=== PATIENT | female | born 1960 | race Caucasian/White ===

== ENCOUNTER → 2017-07-19 | Outpatient (CLI) | payer OTHER | END | disposition home or self-care (01) | LOC: CFH 08:47 | PROVIDERS: ATTEND Specialist | DX: Z12.31 Encounter for screening mammogram for malignant neoplasm of breast (principal) | CPT/HCPCS: 77063; G0202 ==

== ENCOUNTER → 2019-01-16 | Outpatient (CLI) | payer OTHER | END | disposition home or self-care (01) | LOC: CFH 09:28 | PROVIDERS: ATTEND Specialist | DX: Z12.31 Encounter for screening mammogram for malignant neoplasm of breast (principal) | CPT/HCPCS: 77063; 77067 ==

== ENCOUNTER 2019-10-05 14:09 | Inpatient (IN) | payer OTHER ==
[~2019-10-05] VITALS: Ht 165.1 cm; Wt 66.1 kg
[2019-10-05] MEDS ORDERED: KETOROLAC 30 MG/1 ML ONE (14:47)
--- NOTE | 2019-10-05 14:53 | NUR ---
UA SENT PIV PLACED FROM WHICH LABS WERE DRAWN PATIENT THEN MEDICATED PWER EMAR FOR 09/03 RIGHT FLANK FLANK
[2019-10-05] MEDS ORDERED: KETOROLAC 30 MG/1 ML IVPush ONE (15:00)
[2019-10-05] MEDS ORDERED: SODIUM CHLORIDE FLUSH 10ML SYR IVF ONE (15:00)
--- NOTE | 2019-10-05 15:02 | NUR ---
B/P OF 88/45, HR 75. PATIENT QUITE CHILLED pROVIDER MADE AWARE. TO ADMIN 1L NS
[2019-10-05 15:06] LABS: MEAN CORPUSCULAR HEMOGLOBIN 25.9 pg (27.0-34.8); MEAN PLATELET VOLUME 9.4 fL (7.4-10.4); PLATELET COUNT 218 x10^3/uL (130-400); RED BLOOD COUNT 4.56 x10^6/uL (3.82-5.3); RED CELL DISTRIBUTION WIDTH 16.7 % (9.6-15.2)
[2019-10-05 15:08] LABS: ALANINE AMINOTRANSFERASE 33 U/L (12-78); ALBUMIN 4.3 g/dL (3.4-5.0); ANION GAP 7 mmol/L (5-15); CALCIUM 9.5 mg/dL (8.5-10.1); CHLORIDE 107 mmol/L (98-107); CREATININE 0.91 mg/dL (0.55-1.02)
[2019-10-05 15:10] LABS: ALKALINE PHOSPHATASE 74 U/L (45-117); BILIRUBIN,TOTAL 0.7 mg/dL (0.2-1.0); TOTAL PROTEIN 7.8 g/dL (6.4-8.2)
[2019-10-05 15:11] LABS: CULTURE INDICATED? YES; MICROSCOPIC INDICATED
--- NOTE | 2019-10-05 15:27 | NUR ---
abd us at bedside complete b/p remains hypotensive 89/39. however hr 70 1l ns 60% completre Provider made aware-asked for 2nd liter of ns, blood cultures and abx orders Provider considering poc-to bedside to explain
[2019-10-05 15:28] LABS: MD YES
[2019-10-05 15:29] LABS: <PLATELET ESTIMATE> ADEQUATE; BAND#(MANUAL) 1.28 x10^3/uL; BANDS%(MANUAL) 11 % (0-7); HYPOCHROMIA 1+; LYMPH#(MANUAL) 0.23 x10^3/uL (1-3.4); LYMPHS% (MANUAL) 2 % (22-44); MICROCYTOSIS 1+; SEG#(MANUAL) 10.09 x10^3/uL (1.8-6.8); SEGS% (MANUAL) 87 % (42-75)
[2019-10-05 15:30] LABS: <PLT MORPHOLOGY> NORMAL PLT MORPH
[2019-10-05] MEDS ORDERED: SODIUM CHLORIDE 0.9% 1,000ML IVBOLUS ONE ×2 (15:30→16:00)
--- NOTE | 2019-10-05 15:48 | NUR ---
1l ns complete to radiology
[2019-10-05] MEDS ORDERED: CEFTRIAXONE PMX 1GM/50ML 50 ML IV ONE (16:00)
--- NOTE | 2019-10-05 16:00 | NUR ---
WILL HANG ABX ONCE CULTURES OBTAINED-LAB MADE AWARE. 2ND LITER NS ADMINISTERED
--- NOTE | 2019-10-05 16:06 | NUR ---
lab at bedside. blood cultures obtained x 2 abx administerd per emar (after cultures completed)
[2019-10-05] MEDS ORDERED: MORPHINE SULFATE 4 MG/ML, 1ML ONE (16:08)
[2019-10-05] MEDS ORDERED: ONDANSETRON 2MG/ML, 2ML ONE (16:08)
[2019-10-05] MEDS ORDERED: CEFTRIAXONE PMX 1GM/50ML 50 ML ONE (16:08)
[2019-10-05] MEDS ORDERED: FENTANYL PF 100 MCG/2ML ONE (16:10)
--- NOTE | 2019-10-05 16:28 | NUR ---
DR. BARROS AT BEDSIDE TO ADMIT
[2019-10-05] MEDS ORDERED: ONDANSETRON ODT 4 MG PO ONE (16:30)
[2019-10-05] MEDS: ONDANSETRON 2MG/ML, 2ML IVPush PRN (16:30)
[2019-10-05] MEDS ORDERED: FENTANYL PF 100 MCG/2ML IVPush ONE (16:30)
--- NOTE | 2019-10-05 16:50 | NUR ---
TO CT SCAN WITH REASSESSMENT PATIENT REPORTS PAIN/NAUSEA COMPLETELY IMPROVED TO 0/10 HOWEVFER B/P REMAIN 99/68 (2ND LITER OF NS 30% COMPLETE)
[2019-10-05] MEDS ORDERED: OXYcodone IR 5MG TABLET PO PRN (17:00)
[2019-10-05] MEDS ORDERED: hydrALAzine 20 MG/ML, 1ML IVPush PRN (17:00)
--- NOTE | 2019-10-05 17:08 | NUR ---
ATTEMPETED TO CALL REPORT. INPATIENT RN UNAVAILABLE. WILL TRY AGAIN SHORTLY
--- NOTE | 2019-10-05 17:23 | NUR ---
ATTEMPTED TO CALL REPORT AGIN. ROCHE STILL UNAVAILABLE
--- NOTE | 2019-10-05 17:38 | NUR ---
2ND OF NS STILL ONLY 20% COMPLETE. (PATIENT MOVING ARM ALOT SHE FEEL BETTER-OCCLUDING PIV)
[2019-10-05] MEDS ORDERED: OMNIPAQUE 350 MG/ML, 100ML BOTTLE ONE (17:40)
--- NOTE | 2019-10-05 17:46 | NUR ---
PINK SHEET COMPLETED- INPATIENT RN REMINDED TO ASSURE REPEAT VS POST FLUID RESUSCITATION
[2019-10-05] MEDS ORDERED: PROMETHAZINE 25 MG/ML, 1ML IM PRN (18:00)
[2019-10-05] MEDS ORDERED: morphine SULFATE 10 MG/ML, 1ML IVPush PRN (18:00)
--- NOTE | 2019-10-05 18:01 | NUR ---
IVF RATE TROUBLE SHOOTED- SOMEONE CLAMPED ROLLER CLAMP. FIXED. PATIENT PROVIDED WITH FULL DIET TRAY (PATIENT EATING VORACIOUSLY) REPORTS PAIN NOW 05/04- TO MEDICATE
[2019-10-05 18:18] VITALS: BP 94/61
[2019-10-05 18:56] VITALS: BP 99/62
[2019-10-05 20:32] VITALS: BP 92/53
[2019-10-05] MEDS: TAMSULOSIN 0.4 MG CAP.ER.24H PO SCH (20:42)
[2019-10-05] MEDS: D5%-0.45NACL+KCL 20MEQ 1,000 ML IV SCH (20:43)
[2019-10-05] MEDS ORDERED: KETOROLAC 30 MG/1 ML IV PRN (21:00)
[2019-10-05 21:07] VITALS: BP 95/59
[2019-10-06] MEDS: ACETAMINOPHEN 325 MG TABLET PO PRN ×2 (00:31→07:46)
[2019-10-06 00:54] VITALS: BP 95/57
[2019-10-06 01:34] LABS: CULTURE INDICATED? YES; MICROSCOPIC AUTO
[2019-10-06 03:20] VITALS: BP 97/60
[2019-10-06 05:15] LABS: BASOPHILS # (AUTO) 0.01 x10^3/uL (0-0.1); BASOPHILS % (AUTO) 0 % (0-1); EOSINOPHILS # (AUTO) 0.02 x10^3/uL (0-0.4); EOSINOPHILS % (AUTO) 0 % (1-7); LYMPHOCYTES # (AUTO) 0.83 x10^3/uL (1-3.4); LYMPHOCYTES % (AUTO) 10 % (22-44); MD NO; MEAN CORPUSCULAR HEMOGLOBIN 26.6 pg (27.0-34.8); MEAN CORPUSCULAR VOLUME 83.1 fL (80-100); MEAN PLATELET VOLUME 9.4 fL (7.4-10.4); MONOCYTES # (AUTO) 0.53 x10^3/uL (0.2-0.8); MONOCYTES % (AUTO) 6 % (2-9); NEUTROPHILS # (AUTO) 6.83 x10^3/uL (1.8-6.8); NEUTROPHILS % (AUTO) 83 % (42-75); PLATELET COUNT 156 x10^3/uL (130-400); RED BLOOD COUNT 3.69 x10^6/uL (3.82-5.3); RED CELL DISTRIBUTION WIDTH 17.3 % (9.6-15.2)
[2019-10-06 05:22] LABS: ANION GAP 4 mmol/L (5-15); CALCIUM 8.4 mg/dL (8.5-10.1); CHLORIDE 112 mmol/L (98-107); CREATININE 0.79 mg/dL (0.55-1.02)
[2019-10-06 07:35] VITALS: BP 100/59
[2019-10-06] MEDS: TAMSULOSIN 0.4 MG CAP.ER.24H PO SCH (07:47)
[2019-10-06] MEDS: D5%-0.45NACL+KCL 20MEQ 1,000 ML IV SCH ×2 (07:47→21:11)
[2019-10-06] MEDS: CEFTRIAXONE PMX 2GM/50ML 50 ML IV SCH (12:19)
[2019-10-06] MEDS: ASA/APAP/ CAFFEINE TABLET PO PRN ×2 (12:45→16:31)
[2019-10-06 13:02] VITALS: BP 116/71
[2019-10-06] MEDS: ONDANSETRON 2MG/ML, 2ML IVPush PRN (15:46)
[2019-10-06] MEDS ORDERED: CEFTRIAXONE PMX 1GM/50ML 50 ML IV SCH (16:00)
[2019-10-06 18:59] VITALS: BP 104/61
[2019-10-07 02:12] VITALS: BP 122/67
[2019-10-07 05:20] LABS: BASOPHILS # (AUTO) 0.03 x10^3/uL (0-0.1); BASOPHILS % (AUTO) 1 % (0-1); EOSINOPHILS # (AUTO) 0.08 x10^3/uL (0-0.4); EOSINOPHILS % (AUTO) 2 % (1-7); LYMPHOCYTES # (AUTO) 0.61 x10^3/uL (1-3.4); LYMPHOCYTES % (AUTO) 15 % (22-44); MD NO; MEAN CORPUSCULAR HEMOGLOBIN 26.9 pg (27.0-34.8); MEAN CORPUSCULAR HGB CONC 32.6 g/dL (32.4-35.8); MEAN CORPUSCULAR VOLUME 82.3 fL (80-100); MEAN PLATELET VOLUME 9.9 fL (7.4-10.4); MONOCYTES # (AUTO) 0.43 x10^3/uL (0.2-0.8); MONOCYTES % (AUTO) 11 % (2-9); NEUTROPHILS # (AUTO) 2.96 x10^3/uL (1.8-6.8); NEUTROPHILS % (AUTO) 72 % (42-75); PLATELET COUNT 135 x10^3/uL (130-400); RED BLOOD COUNT 3.72 x10^6/uL (3.82-5.3); RED CELL DISTRIBUTION WIDTH 17.6 % (9.6-15.2)
[2019-10-07 05:28] LABS: ANION GAP 3 mmol/L (5-15); CALCIUM 8.3 mg/dL (8.5-10.1); CHLORIDE 113 mmol/L (98-107); CREATININE 0.74 mg/dL (0.55-1.02)
[2019-10-07] MEDS: ASA/APAP/ CAFFEINE TABLET PO PRN ×2 (06:28→17:36)
[2019-10-07] MEDS: D5%-0.45NACL+KCL 20MEQ 1,000 ML IV SCH ×2 (06:29→17:36)
[2019-10-07 07:06] VITALS: BP 105/65
[2019-10-07] MEDS: TAMSULOSIN 0.4 MG CAP.ER.24H PO SCH (08:40)
[2019-10-07] MEDS: CEFTRIAXONE PMX 2GM/50ML 50 ML IV SCH (11:37)
[2019-10-07 12:59] VITALS: BP 102/62
[2019-10-07 19:11] VITALS: BP 106/64
[2019-10-07] MEDS: ACETAMINOPHEN 325 MG TABLET PO PRN (23:28)
[2019-10-07] MEDS: DIPHENHYDRAMINE 25 MG CAPSULE PO PRN (23:28)
[2019-10-08 01:32] VITALS: BP 108/61
[2019-10-08] MEDS: D5%-0.45NACL+KCL 20MEQ 1,000 ML IV SCH ×2 (03:51→15:00)
[2019-10-08 06:53] VITALS: BP 115/72
[2019-10-08] MEDS: ASA/APAP/ CAFFEINE TABLET PO PRN (07:43)
[2019-10-08] MEDS: TAMSULOSIN 0.4 MG CAP.ER.24H PO SCH (08:53)
[2019-10-08] MEDS: CEFTRIAXONE PMX 2GM/50ML 50 ML IV SCH (12:15)
[2019-10-08 12:19] VITALS: BP 114/75
[2019-10-08 19:30] VITALS: BP 121/77
[2019-10-08] MEDS: DIPHENHYDRAMINE 25 MG CAPSULE PO PRN (22:03)
[2019-10-09] MEDS: D5%-0.45NACL+KCL 20MEQ 1,000 ML IV SCH ×2 (00:18→11:05)
[2019-10-09 02:08] VITALS: BP 115/73
[2019-10-09] MEDS: ASA/APAP/ CAFFEINE TABLET PO PRN (02:26)
[2019-10-09 07:20] VITALS: BP 119/69
[2019-10-09] MEDS: TAMSULOSIN 0.4 MG CAP.ER.24H PO SCH (08:11)
[2019-10-09] MEDS: CEFTRIAXONE PMX 2GM/50ML 50 ML IV SCH (12:13)
[2019-10-09] MEDS ORDERED: SENNA/DOCUSATE TABLET PO SCH (13:30)
[2019-10-09 14:00] VITALS: BP 118/72
[2019-10-09] MEDS ORDERED: TAMS-11 PO (14:07)
[2019-10-09] MEDS ORDERED: ACET325T26 PO (14:07)
[2019-10-09] MEDS ORDERED: AMOX1TAB64 PO (14:07)
== END 2019-10-09 16:40 | disposition home or self-care (01) | DRG 690 ==
LOC: ED 15:40 → EDIP 15:54 → 3N 17:36 → DCLOUNGE 10-09 16:24
PROVIDERS: ADMIT Hospitalist; ATTEND Internal Medicine
PROC: 0T9B70Z Drainage of Bladder with Drainage Device, Via Natural or Artificial Opening (ICD-10-PCS; principal; 2019-10-06)
DX: N12 Tubulo-interstitial nephritis, not specified as acute or chronic (principal); R78.81 Bacteremia; D64.9 Anemia, unspecified; E86.1 Hypovolemia; G43.909 Migraine, unspecified, not intractable, without status migrainosus; B96.20 Unspecified Escherichia coli [E. coli] as the cause of diseases classified elsewhere; I10 Essential (primary) hypertension; N20.0 Calculus of kidney; Q65.89 Other specified congenital deformities of hip; Z82.49 Family history of ischemic heart disease and other diseases of the circulatory system; Z87.442 Personal history of urinary calculi; Z79.899 Other long term (current) drug therapy
CPT/HCPCS: 36415; 74018; 74177; 76700; 80048; 80053; 81001; 83605; 83690; 85025; 87040; 87077; 87086; 87186; 96365; 96375; 99285; G0378; J0696; J1885; J2405; J3010; Q9967; J3480; J7030; Q0163

== ENCOUNTER 2020-04-14 08:45 | Outpatient (CLI) | payer OTHER ==
[~2020-04-14 08:45] MED LIST: ACET325T26 PO; AMOX1TAB64 PO; TAMS-11 PO
[2020-04-14 10:09] LABS: ALANINE AMINOTRANSFERASE 25 U/L (12-78); ANION GAP 4 mmol/L (5-15); CALCIUM 9.3 mg/dL (8.5-10.1); CHLORIDE 110 mmol/L (98-107); CREATININE 0.73 mg/dL (0.55-1.02)
[2020-04-14 10:10] LABS: MEAN CORPUSCULAR HEMOGLOBIN 27.1 pg (27.0-34.8); MEAN CORPUSCULAR HGB CONC 32.4 g/dL (32.4-35.8); MEAN CORPUSCULAR VOLUME 83.6 fL (80-100); MEAN PLATELET VOLUME 8.9 fL (7.4-10.4); PLATELET COUNT 255 x10^3/uL (130-400); RED BLOOD COUNT 4.11 x10^6/uL (3.82-5.3); RED CELL DISTRIBUTION WIDTH 13.6 % (9.6-15.2)
[2020-04-14 10:11] LABS: ALKALINE PHOSPHATASE 65 U/L (45-117); BILIRUBIN,TOTAL 0.6 mg/dL (0.2-1.0); TOTAL PROTEIN 7.3 g/dL (6.4-8.2)
[2020-04-14] MEDS ORDERED: CELE200C PO (10:15)
[2020-04-14 10:40] LABS: BASOPHILS # (AUTO) 0.03 x10^3/uL (0-0.1); BASOPHILS % (AUTO) 1 % (0-1); EOSINOPHILS # (AUTO) 0.19 x10^3/uL (0-0.4); EOSINOPHILS % (AUTO) 6 % (1-7); LYMPHOCYTES # (AUTO) 1.01 x10^3/uL (1-3.4); LYMPHOCYTES % (AUTO) 30 % (22-44); MD SCAN; MONOCYTES % (AUTO) 12 % (2-9); NEUTROPHILS # (AUTO) 1.76 x10^3/uL (1.8-6.8); NEUTROPHILS % (AUTO) 52 % (42-75)
== END 2020-04-14 23:59 | disposition home or self-care (01) ==
LOC: STAR 08:45
PROVIDERS: ATTEND Orthopaedic Surgery
DX: Z01.818 Encounter for other preprocedural examination (principal); Z11.59 Encounter for screening for other viral diseases; M16.12 Unilateral primary osteoarthritis, left hip; M25.552 Pain in left hip; I44.4 Left anterior fascicular block
CPT/HCPCS: 36415; 80053; 85025; 87081; 93005; U0001

== ENCOUNTER 2020-04-19 05:37 | Observation (INO) | payer OTHER ==
[~2020-04-19] VITALS: Ht 170.2 cm; Wt 66.8 kg
[~2020-04-19 05:37] MED LIST changes: +CELE200C PO
[2020-04-19] MEDS ORDERED: KETOROLAC 60 MG/2 ML ONE (06:44)
[2020-04-19] MEDS ORDERED: SODIUM CHLORIDE 0.9% 50 ML ONE (06:45)
[2020-04-19] MEDS ORDERED: ROPIvacaine/PF 0.2%, 20 ML ONE (06:45)
[2020-04-19] MEDS ORDERED: morphine SULFATE/PF 1 MG/ML, 10ML ONE (06:45)
[2020-04-19] MEDS ORDERED: EPINEPHRINE 1 MG/ML, 1ML ONE (06:45)
[2020-04-19] MEDS ORDERED: TRANEXAMIC ACID 100 MG/ML, 10ML ONE (06:45)
[2020-04-19] MEDS ORDERED: OXYC5TAB3 PO (06:50)
[2020-04-19] MEDS ORDERED: LACTATED RINGERS 1,000 ML IV SCH (06:51)
[2020-04-19] MEDS ORDERED: GABAPENTIN 300 MG CAPSULE ONE (06:53)
[2020-04-19] MEDS ORDERED: CHLORHEXIDINE 15 ML UDC ONE (06:55)
[2020-04-19] MEDS ORDERED: ACETAMINOPHEN 325 MG TABLET ONE (06:59)
[2020-04-19] MEDS ORDERED: CHLORHEXIDINE 15 ML UDC MM ONE (07:00)
[2020-04-19] MEDS ORDERED: MIDAZOLAM 1 MG/ML, 2ML ONE (07:07)
[2020-04-19] MEDS ORDERED: FENTANYL PF 250 MCG/5ML ONE ×2 (07:11→11:08)
[2020-04-19] MEDS ORDERED: VANCOMYCIN 1,000 MG ONE (07:33)
[2020-04-19] MEDS ORDERED: MEPERIDINE/PF 25MG/0.5ML IVPush PRN (08:30)
[2020-04-19] MEDS ORDERED: LABETALOL 5MG/ML, 20ML IV PRN (08:30)
[2020-04-19] MEDS ORDERED: PROMETHAZINE 25 MG/ML, 1ML IV PRN (08:30)
[2020-04-19] MEDS ORDERED: OXYcodone 5 MG/5 ML ORAL.SOL UDC PO PRN (08:30)
[2020-04-19] MEDS ORDERED: HYDROmorphone 1 MG/ML, 1ML INJ IVPush PRN (08:30)
[2020-04-19] MEDS ORDERED: hydrALAzine 20 MG/ML, 1ML IV PRN (08:30)
[2020-04-19] MEDS ORDERED: DIAZEPAM 5 MG/ML, 2ML IVPush PRN (08:30)
[2020-04-19] MEDS ORDERED: ALBUTEROL SULFATE 2.5 MG/3 ML NPPB PRN (08:30)
[2020-04-19] MEDS ORDERED: CEFAZOLIN 1,000 MG ONE ×2 (08:40→11:18)
[2020-04-19] MEDS ORDERED: SUCCINYLCHOLINE 20 MG/ML, 10ML ONE ×2 (08:40→11:18)
[2020-04-19] MEDS ORDERED: ONDANSETRON 2MG/ML, 2ML ONE ×2 (08:40→11:18)
[2020-04-19] MEDS ORDERED: ROCURONIUM 10MG/ML,5ML ONE ×2 (08:40→11:18)
[2020-04-19] MEDS ORDERED: NEOSTIGMINE 1 MG/ML, 10ML ONE ×2 (08:40→11:18)
[2020-04-19] MEDS ORDERED: PROPOFOL 10 MG/ML, 20ML ONE ×2 (08:40→11:18)
[2020-04-19] MEDS ORDERED: GLYCOPYRROLATE 0.2MG/1ML, 5ML ONE ×2 (08:40→11:18)
[2020-04-19] MEDS ORDERED: SUGAMMADEX 200 MG/2 ML IVPush ONE (08:40)
[2020-04-19] MEDS ORDERED: DEXAMETHASONE 4 MG/ML, 1ML ONE ×2 (08:40→11:18)
[2020-04-19] MEDS ORDERED: DIAZEPAM 5 MG/ML, 2ML ONE (09:14)
[2020-04-19] MEDS ORDERED: FENTANYL PF 100 MCG/2ML ONE (09:14)
[2020-04-19] MEDS: FENTANYL PF 100 MCG/2ML IV PRN ×3 (09:25→09:55)
[2020-04-19] MEDS ORDERED: HYDROmorphone 1 MG/ML, 1ML INJ ONE (09:57)
[2020-04-19] MEDS ORDERED: PROMETHAZINE 25 MG/ML, 1ML ONE (10:06)
[2020-04-19] MEDS ORDERED: ACETAMINOPHEN 500 MG TABLET PO SCH (11:30)
[2020-04-19] MEDS ORDERED: ONDANSETRON 2MG/ML, 2ML IVPush PRN (11:30)
[2020-04-19] MEDS ORDERED: CEFAZOLIN PMX 1GM/50ML 50 ML IVPB SCH (12:00)
[2020-04-19] MEDS: KETOROLAC 30 MG/1 ML IVPush SCH ×2 (12:00→20:44)
[2020-04-19] MEDS ORDERED: OXYcodone IR 5MG TABLET PO PRN (12:00)
[2020-04-19] MEDS ORDERED: HYDROcodone/APAP 7.5-325MG/15ML UDC PO PRN (12:00)
[2020-04-19] MEDS ORDERED: OXYC-302 PO (12:09)
[2020-04-19] MEDS ORDERED: KETO10TA PO (12:12)
[2020-04-19 12:23] VITALS: BP 158/82
[2020-04-19 14:00] VITALS: BP 98/50
[2020-04-19] MEDS: ACETAMINOPHEN 500 MG TABLET PO SCH ×2 (15:48→20:44)
[2020-04-19] MEDS: CEFAZOLIN PMX 1GM/50ML 50 ML IVPB SCH (15:50)
[2020-04-19 18:10] VITALS: BP 95/59
[2020-04-19] MEDS ORDERED: LACTATED RINGERS 1,000 ML IVBOLUS ONE (18:30)
[2020-04-19 20:40] VITALS: BP 78/44
[2020-04-19 20:42] VITALS: BP 79/41
[2020-04-19] MEDS: GABAPENTIN 300 MG CAPSULE PO SCH ×2 (20:44→21:27)
[2020-04-19] MEDS: SODIUM CHLORIDE FLUSH 10ML SYR IVF SCH (20:44)
[2020-04-19] MEDS ORDERED: SODIUM CHLORIDE 0.9%, 500ML IVBOLUS ONE (21:00)
[2020-04-19 23:09] VITALS: BP 87/46
[2020-04-20] MEDS: CEFAZOLIN PMX 1GM/50ML 50 ML IVPB SCH (00:19)
[2020-04-20 03:18] VITALS: BP 112/47
[2020-04-20] MEDS: KETOROLAC 30 MG/1 ML IVPush SCH (03:55)
[2020-04-20] MEDS: ACETAMINOPHEN 500 MG TABLET PO SCH ×3 (03:55→17:25)
[2020-04-20 05:00] VITALS: BP 85/50
[2020-04-20] MEDS ORDERED: ENOXAPARIN 40 MG/0.4 ML SQ SCH (06:00)
[2020-04-20 06:14] VITALS: BP 88/55
[2020-04-20] MEDS: SODIUM CHLORIDE FLUSH 10ML SYR IVF SCH (08:41)
[2020-04-20 13:03] VITALS: BP 111/56
[2020-04-20] MEDS ORDERED: ASPI81TA45 PO (14:56)
[2020-04-20] MEDS ORDERED: KETOROLAC 10MG TABLET PO PRN (17:30)
[2020-04-20 18:28] VITALS: BP 97/60
[2020-04-20 20:15] VITALS: BP 98/66
== END 2020-04-20 20:45 | disposition home or self-care (01) ==
LOC: INTOOBSV 05:37 → ORIP 05:37 → EDSTATUS 07:30 → 4NE 11:08
PROVIDERS: ADMIT Orthopaedic Surgery; ATTEND Orthopaedic Surgery
DX: M16.12 Unilateral primary osteoarthritis, left hip (principal); Z79.899 Other long term (current) drug therapy
CPT/HCPCS: 27130; 36415; 73502; 85014; 85018; 86850; 86900; 96365; 96366; 96372; 96375; 96376; 97110; 97161; 97165; C1713; C1776; G0378; J0171; J0330; J0690; J1100; J1170; J1650; J1885; J2250; J2274; J2405; J2550; J2704; J2710; J2795; J3010; J3360; J3370; J7040; J7120

== ENCOUNTER → 2020-12-26 | Outpatient (CLI) | payer OTHER ==
[~2020-12-26] MED LIST changes: +ASPI81TA45 PO; +KETO10TA PO; +OXYC1TAB14 PO; +OXYC5TAB98 PO
== END | disposition home or self-care (01) ==
LOC: CFH 10:17
PROVIDERS: ATTEND Family Medicine
DX: Z12.31 Encounter for screening mammogram for malignant neoplasm of breast (principal); Z12.39 Encounter for other screening for malignant neoplasm of breast
CPT/HCPCS: 76641; 77063; 77067

== ENCOUNTER 2021-01-06 10:17 | Outpatient (CLI) | payer OTHER | END 2021-01-06 23:59 | disposition home or self-care (01) | LOC: CFH 10:17 | PROVIDERS: ATTEND Family Medicine | DX: R92.2 Inconclusive mammogram (principal) | CPT/HCPCS: 76642 ==